=== PATIENT | male | born 1995 | race Two or more races ===

== ENCOUNTER 2024-04-08 22:11 | Emergency (ER) | payer MEDICAID ==
[~2024-04-08] VITALS: Ht 172.7 cm; Wt 80.0 kg
[2024-04-08] MEDS: KETOROLAC TROMETHAMINE 30 MG/ML VIAL IVP ONE (23:40)
[2024-04-08] MEDS ORDERED: IBUP-1492 PO (23:44)
[2024-04-08] MEDS: KETOROLAC TROMETHAMINE 30 MG/ML VIAL IM ONE (23:45)
[2024-04-09 00:10] VITALS: BP 132/77; PULSE 85; RESP 18; TEMP 98.3
== END 2024-04-09 00:24 | disposition home or self-care (01) ==
LOC: EDSEX 22:11 → EMS 22:11
DX: M79.18 Myalgia, other site (principal)
CPT/HCPCS: 99283; 96372; J1885